=== PATIENT | female | born 1960 | race Caucasian/White ===

== ENCOUNTER 2022-01-03 14:01 | Inpatient (IN) | payer OTHER ==
[~2022-01-03] VITALS: Ht 172.7 cm; Wt 89.8 kg
[2022-01-03] MEDS ORDERED: DiphenhydrAMINE HCL 50 MG/ML VIAL IM ONE (14:45)
[2022-01-03] MEDS ORDERED: HALOPERIDOL LACTATE 5 MG/ML VIAL IM ONE (14:45)
[2022-01-03] MEDS ORDERED: LORazepam 2 MG/ML VIAL IM ONE (14:45)
[2022-01-03 14:49] LABS: BASOPHILS % (AUTO) 0.3 % (0.0-2.0); EOSINOPHILS % (AUTO) 0.5 % (1.0-6.0); HEMATOCRIT 42.4 % (36-46); HEMOGLOBIN 14.7 g/dL (12.0-16.0); LYMPHOCYTES # (AUTO) 1.5 K/uL (1.0-4.8); LYMPHOCYTES % (AUTO) 21.4 % (22.0-44.0); MEAN CORPUSCULAR HEMOGLOBIN 30.7 pg (26.0-34.0); MEAN CORPUSCULAR HGB CONC 34.6 G/dL (31.0-37.0); MEAN CORPUSCULAR VOLUME 89 fL (80-100); MONOCYTES # (AUTO) 0.7 K/uL (0.1-1.0); MONOCYTES % (AUTO) 9.9 % (2.0-9.0); NEUTROPHILS # (AUTO) 4.6 K/uL (1.8-7.7); NEUTROPHILS % (AUTO) 67.9 % (40.0-70.0); PLATELET COUNT (AUTO) 240 K/uL (150-450); RED BLOOD CELL COUNT(AUTO) 4.77 MIL/uL (4.00-5.20); RED CELL DISTRIBUTION WIDTH 14.2 % (11.5-14.5)
[2022-01-03 14:56] LABS: COVID AG,FIA SOURCE NASOPHARYNGEAL
[2022-01-03 14:58] LABS: CALCIUM, TOTAL 8.6 mg/dL (8.8-10.5); CREATININE 0.94 mg/dL (0.60-1.30); POTASSIUM 3.4 mmol/L (3.5-5.1)
[2022-01-03 15:13] LABS: ALBUMIN 3.8 g/dL (3.4-5.0); BILIRUBIN,TOTAL 0.2 mg/dL (0.1-1.0); THYROID STIMULATING HORMONE 2.25 uIU/mL (0.36-3.74); TOTAL PROTEIN, SERUM 8.1 g/dL (6.4-8.2)
[2022-01-03] MEDS ORDERED: LORazepam 1 MG TABLET PO ONE (16:45)
[2022-01-03] MEDS ORDERED: POTASSIUM CHLORIDE 10 MEQ ER TABLET PO ONE (16:45)
[2022-01-03] MEDS ORDERED: MAG HYDROX/AL HYDROX/SIMETH 30 ML SUSP UDCUP PO ONE (17:30)
[2022-01-03] MEDS ORDERED: HALOPERIDOL 5 MG TABLET PO PRN (20:30)
[2022-01-03] MEDS ORDERED: ZOLPIDEM TARTRATE 10 MG TABLET PO PRN (20:30)
[2022-01-04] VITALS (10 sets, daily range): BP systolic 132–150; BP diastolic 80–90
[2022-01-04] MEDS: LORazepam 2 MG TABLET PO PRN ×2 (04:04→20:35)
[2022-01-04] MEDS ORDERED: PETROLATUM,WHITE 28 GM JELLY TP PRN (09:45)
[2022-01-04] MEDS ORDERED: DOCUSATE SODIUM 100 MG CAPSULE PO PRN (09:45)
[2022-01-04] MEDS ORDERED: NICOTINE 14 MG/24 HOUR PATCH TD PRN (09:45)
[2022-01-04] MEDS ORDERED: CloNIDine HCL 0.1 MG TABLET PO PRN (09:45)
[2022-01-04] MEDS ORDERED: LOPERAMIDE HCL 2 MG CAPSULE PO PRN (09:45)
[2022-01-04] MEDS ORDERED: MAG HYDROX/AL HYDROX/SIMETH ES 30 ML SUSPENSION UDCUP PO PRN (09:45)
[2022-01-04] MEDS ORDERED: ONDANSETRON HCL 4 MG TABLET PO PRN (09:45)
[2022-01-04] MEDS ORDERED: GuaiFENesin/D-METHORPHAN [SUGAR-FREE] 200-20MG/10 ML SYRUP UDCUP PO PRN (09:45)
[2022-01-04] MEDS ORDERED: MAGNESIUM HYDROXIDE SUSPENSION 30 ML UDCUP PO PRN (09:45)
[2022-01-04] MEDS ORDERED: ACETAMINOPHEN 325 MG TABLET PO PRN (09:45)
[2022-01-04] MEDS ORDERED: ALBUTEROL SULFATE HFA 90 MCG/PUFF 8 GM INHALER IH PRN (09:45)
[2022-01-04] MEDS ORDERED: IBUPROFEN 400 MG TABLET PO PRN (09:45)
[2022-01-04] MEDS ORDERED: LORazepam 2 MG TABLET PO PRN (16:45)
[2022-01-05] MEDS ORDERED: LORazepam 2 MG TABLET PO PRN (07:00)
[2022-01-05 08:01] VITALS: BP 140/77
[2022-01-05] MEDS: LORazepam 2 MG TABLET PO SCH ×4 (09:05→20:24)
[2022-01-05 09:08] VITALS: BP 140/77
[2022-01-05 12:09] VITALS: BP 145/94
[2022-01-05 16:01] VITALS: BP 149/94
[2022-01-05 20:16] VITALS: BP 121/77
[2022-01-06 08:24] VITALS: BP 145/97
[2022-01-06] MEDS: LORazepam 2 MG TABLET PO SCH ×2 (08:43→12:52)
[2022-01-06 08:57] VITALS: BP 145/97
[2022-01-06] MEDS ORDERED: FAMOTIDINE 20 MG TABLET PO SCH (09:00)
[2022-01-06] MEDS ORDERED: FAMO20 PO ×2 (12:33→12:56)
[2022-01-06 14:25] LABS: APPEARANCE,URINE CLEAR (CLEAR); BILIRUBIN,URINE NEGATIVE (NEGATIVE); GLUCOSE, URINE (UA) NEGATIVE (NEGATIVE); KETONES,URINE NEGATIVE (NEGATIVE); LEUKOCYTE ESTERASE ,URINE NEGATIVE (NEGATIVE); NITRATE,URINE NEGATIVE (NEGATIVE); OCCULT BLOOD,URINE NEGATIVE (NEGATIVE); PROTEIN,URINE NEGATIVE (NEGATIVE); SPECIFIC GRAVITIY, URINE 1.013 (1.003-1.030); UROBILINOGEN,URINE <=1.0 mg/dL (<=1.0)
[2022-01-07] MEDS ORDERED: LORazepam 1 MG TABLET PO PRN (07:00)
[2022-01-07] MEDS ORDERED: LORazepam 1 MG TABLET PO SCH (09:00)
[2022-01-08] MEDS ORDERED: LORazepam 1 MG TABLET PO PRN (07:00)
== END 2022-01-06 15:25 | disposition home or self-care (01) | DRG 885 ==
LOC: EMS 14:01 → 3EI 01-04 00:11
PROVIDERS: ADMIT Psychiatry & Neurology Child & Adolescent Psychiatry; ATTEND Psychiatry & Neurology Child & Adolescent Psychiatry
DX: F32.2 Major depressive disorder, single episode, severe without psychotic features (principal); F23 Brief psychotic disorder; R45.851 Suicidal ideations; Z20.822 Contact with and (suspected) exposure to COVID-19; E66.3 Overweight; E87.6 Hypokalemia; F10.10 Alcohol abuse, uncomplicated; F41.9 Anxiety disorder, unspecified; F19.10 Other psychoactive substance abuse, uncomplicated; Z88.0 Allergy status to penicillin; Z68.30 Body mass index [BMI] 30.0-30.9, adult; Z91.52 Personal history of nonsuicidal self-harm
CPT/HCPCS: 80053; 81003; 84132; 84443; 85025; 99291; G0480